=== PATIENT | male | born 1975 | race Caucasian/White ===

== ENCOUNTER 2017-03-02 17:20 | Emergency (ER) | payer SELFPAY ==
[~2017-03-02] VITALS: Ht 182.9 cm; Wt 83.9 kg
[2017-03-02 17:23] VITALS: BP 157/98
== END 2017-03-02 19:27 | disposition left against medical advice (07) ==
LOC: ER 17:25
DX: S61.412A Laceration without foreign body of left hand, initial encounter (principal); Z53.21 Procedure and treatment not carried out due to patient leaving prior to being seen by health care provider; X58.XXXA Exposure to other specified factors, initial encounter; Y93.89 Activity, other specified; Y99.8 Other external cause status; Y92.89 Other specified places as the place of occurrence of the external cause

== ENCOUNTER 2018-03-25 02:30 | Emergency (ER) | payer SELFPAY ==
[~2018-03-25] VITALS: Ht 182.9 cm; Wt 79.4 kg
[2018-03-25 03:03] VITALS: BP 145/88
[2018-03-25] MEDS ORDERED: cefTRIAXone SOD 1,000 MG VL IM ONE ×2 (04:15)
[2018-03-25] MEDS ORDERED: TETANUS-DIPTH-ACEL PERTUSSIS 0.5ML SYRG IM ONE (04:15)
[2018-03-25] MEDS ORDERED: HYDROcodone-ACET 10/325MG TAB PO ONE (04:15)
[2018-03-25] MEDS ORDERED: LIDOCAINE 1% HCL (LOCAL ANESTH.) INJ 20ML MDV ONE (04:17)
== END 2018-03-25 04:41 | disposition home or self-care (01) ==
LOC: ER 02:33
DX: L02.414 Cutaneous abscess of left upper limb (principal)
CPT/HCPCS: 10060; 90471; 90715; 96372; 99283; C1887; J0696; J2001

== ENCOUNTER 2018-07-05 19:01 | Emergency (ER) | payer SELFPAY ==
[~2018-07-05] VITALS: Ht 182.9 cm; Wt 77.1 kg
[2018-07-05 19:06] VITALS: BP 143/98
[2018-07-05] MEDS ORDERED: LIDOCAINE 1% HCL (LOCAL ANESTH.) INJ 20ML MDV IJ ONE (20:30)
== END 2018-07-05 21:30 | disposition home or self-care (01) ==
LOC: ER 19:08
DX: S81.012A Laceration without foreign body, left knee, initial encounter (principal); W29.8XXA Contact with other powered hand tools and household machinery, initial encounter; Y93.89 Activity, other specified; Y99.8 Other external cause status; Y92.89 Other specified places as the place of occurrence of the external cause
CPT/HCPCS: 12002; 73560; 99283; J2001